=== PATIENT | female | born 1960 | race Caucasian/White ===

== ENCOUNTER 2016-06-30 19:25 | Emergency (ER) | payer MEDICAID ==
[~2016-06-30] VITALS: Ht 165.1 cm; Wt 70.0 kg
[2016-06-30 19:58] VITALS: BP 152/87
[2016-06-30] MEDS ORDERED: CYCLOBENZAPRINE 10MG TABLET PO ONE (20:00)
[2016-06-30] MEDS ORDERED: IBUPROFEN 600MG TABLET PO ONE (20:00)
== END 2016-06-30 20:33 | disposition home or self-care (01) ==
LOC: ER 19:32
DX: S29.012A Strain of muscle and tendon of back wall of thorax, initial encounter (principal); W01.0XXA Fall on same level from slipping, tripping and stumbling without subsequent striking against object, initial encounter; Y93.89 Activity, other specified; Y99.8 Other external cause status; Y92.59 Other trade areas as the place of occurrence of the external cause
CPT/HCPCS: 99283